=== PATIENT | female | born 1950 | race Caucasian/White ===

== ENCOUNTER 2016-04-10 17:10 | Emergency (ER) | payer OTHER ==
[~2016-04-10] VITALS: Ht 160 cm; Wt 64.0 kg
[2016-04-10 17:13] VITALS: BP 156/69; PULSE 80; RESP 20; TEMP 97.6; O2SAT 94
--- NOTE | 2016-04-10 17:23 | PD ---
HPI Chief Complaint: Injury Time Seen by Provider: 17:23 Travel History International Travel<30 days: No Contact w/Intl Traveler<30days: No Traveled to known affect area: No History of Present Illness HPI 66-year-old female presents to the emergency department for evaluation left ankle pain. Patient states that she misstepped and rolled her ankle. She did not fall. She did not hit her head. She denies any chest pain or tightness. No difficulty breathing. No alterations in sensation of the distal affected extremity. This report pain around a 5 out of 10. Does not want anything for pain at this time. She has no other symptoms to report. PFSH Past Medical History Medical History: Denies Significant Hx Social History Alcohol Use: No Tobacco Use: No Substance Use: No Allergies-Medications (Allergen,Severity, Reaction): Coded Allergies: No Known Allergies (Unverified , 04/10/16) Reported Meds & Prescriptions Reported Meds & Active Scripts Active Ibuprofen 600 Mg Tab 600 Mg PO Q8HR PRN Review of Systems Except as stated in HPI: all other systems reviewed are Neg Physical Exam Narrative GENERAL: Well-nourished female patient, in no acute distress SKIN: Warm and dry. HEAD: Atraumatic. Normocephalic. EYES: Pupils equal and round. No scleral icterus. No injection or drainage. ENT: No nasal bleeding or discharge. Mucous membranes pink and moist. NECK: Trachea midline. No JVD. CARDIOVASCULAR: Regular rate and rhythm. No murmur appreciated. RESPIRATORY: No accessory muscle use. Clear to auscultation. Breath sounds equal bilaterally. EXTREMITY: The left ankle is swollen and tender over the lateral aspect but the skin is intact and there is no ligamentous instability. There is no deformity. The foot and toes are warm and well-perfused. Sensation to pain and light touch is intact. Data Data Last Documented VS Vital Signs Date Time Temp Pulse Resp B/P Pulse Ox O2 Delivery O2 Flow Rate FiO2 04/10/16 17:13 97.6 80 20 156/69 94 Room Air Orders Ankle, Complete ([id number]) (04/10/16 ) Splint Or Brace Apply/Monitor (04/10/16 17:37) Crutches (04/10/16 17:37) MDM Medical Decision Making Medical Screen Exam Complete: Yes Emergency Medical Condition: Yes Medical Record Reviewed: Yes Differential Diagnosis Sprain versus fracture versus contusion versus dislocation Narrative Course 66 year-old female presents to the emergency department for evaluation left ankle pain. X-ray imaging shows no acute bony abnormality. There is soft tissue swelling. Patient is placed in a Velcro stirrup splint. She was counseled on care and agrees to return immediately with any acute worsening of symptoms. Diagnosis Primary Impression: Left ankle sprain Qualified Code: S93.402A - Sprain of left ankle, unspecified ligament, initial encounter Referrals: Primary Care Physician Patient Instructions: Ankle Sprain Exercises (GEN), General Instructions Additional Instructions: Brace, ice, and elevate to reduce pain and swelling No weightbearing on the affected extremity over the next 24-48 hours and slowly advance weightbearing as tolerated Follow-up with your primary care provider Return immediately to the emergency department with any acute worsening of symptoms Med/Other Pt SpecificInfo: Prescription(s) given Scripts Ibuprofen 600 Mg [id number] Mg PO Q8HR PRN (PAIN) #30 TAB Ref 0 Prov:Cathryn Eldridge 04/10/16 Disposition: 01 DISCHARGE HOME Condition: Stable Cathryn Eldridge Apr 10, 2016 17:23
[2016-04-10] MEDS ORDERED: IBUP-232 PO ×2 (17:47→18:02)
--- NOTE | 2016-04-10 17:54 | RADRPT ---
EXAM DATE/TIME: 04/10/2016 17:28 [facility] COMPARISON: No previous studies available for comparison. INDICATIONS : Left ankle pain, twisted. MEDICAL HISTORY : None. SURGICAL HISTORY : None. ENCOUNTER: Initial ACUITY: 1 day PAIN SCORE: 8/10 LOCATION: Left ankle FINDINGS: There is soft-tissue swelling over both the medial and lateral malleolus. Bone density is normal. Alignment is anatomic. Fracture is not appreciated. There is minimal irregularity at the tip of the lateral malleolus suggesting previous injury. CONCLUSION: Soft-tissue swelling medial and lateral ankle without fracture. Valeriano Hatch MD FACR on April 10, 2016 at 17:34 Board Certified Radiologist. This report was verified electronically.
== END 2016-04-10 18:18 | disposition home or self-care (01) ==
LOC: NETRI 17:10
DX: S93.402A Sprain of unspecified ligament of left ankle, initial encounter (principal); X50.1XXA Overexertion from prolonged static or awkward postures, initial encounter
CPT/HCPCS: 73610; 99283; E0113; L1906